=== PATIENT | male | born 1945 | race Caucasian/White ===

== ENCOUNTER 2016-11-09 15:56 | Observation (INO) | payer MEDICARE ==
[~2016-11-09] VITALS: Ht 188 cm; Wt 109.1 kg
[2016-11-09] VITALS (7 sets, daily range): BP systolic 150–178; BP diastolic 83–98; PULSE 55–66; RESP 16–20; TEMP 97.6–97.8; O2SAT 94–96
[~2016-11-09 15:56] MED LIST: 1-ME1LIQ PO; ATEN1TAB74 PO; CETI10 PO; CITA10TA4 PO; GNP1000T4 PO; MULTI-MINERAL PO; NIAC400C2 PO; OMEP20CA5 PO; RED600TA PO; [UNRECOGNIZED DRUG - CODE] PO
[2016-11-09] MEDS ORDERED: SODIUM CHLORIDE 0.9% FLUSH 5 ML FLUSH IVF PRN (16:15)
--- NOTE | 2016-11-09 16:36 | RADRPT ---
EXAM DATE/TIME: 11/09/2016 16:16 [facility] COMPARISON: No previous studies available for comparison. INDICATIONS : Chest pain. MEDICAL HISTORY : None. SURGICAL HISTORY : None. ENCOUNTER: Initial ACUITY: 1 day PAIN SCORE: 4/10 LOCATION: Bilateral chest FINDINGS: There is ill-defined area of airspace density overlying the left hemidiaphragm. This may represent a left lower lobe pneumonia. The cardiomediastinal contours are unremarkable. Osseous structures are i ntact. CONCLUSION: Concern for possible left lower lobe pneumonia. Recommend upright PA lateral views when clinically ab le. Qi Hodge MD on November 09, 2016 at 16:34 Board Certified Radiologist. This report was verified electronically.
--- NOTE | 2016-11-09 16:37 | PD ---
HPI Chief Complaint: Cardiac Complaint Time Seen by Provider: 16:32 Travel History International Travel<30 days: No Contact w/Intl Traveler<30days: No Traveled to known affect area: No History of Present Illness HPI 71-year-old male that presents to the ED for evaluation of possible cardiac complaint. Per patient since Saturday his been having dizziness and lightheadedness spells that did not seem to be going away. Per patient he went to his doctor Dr. Vidal to do workup on him including MRIs as well as ultrasounds of the carotids and the head. Per patient although this testing came within normal limits. He went to see Dr. Alfaro today and he recommended a mold runner workup with evaluation by cardiology for this episodes. Patient states that he has an appointment for November for evaluation of this but today this afternoon before coming he fell another episode with severe pressure in his chest as well as shortness of breath. Per patient he doesn't feel like the room spinning but he feels like he is going to pass out. Denies any fevers chills or sweats. He does state that he feels more weak for the past couple of days. He denies any history of heart disease on himself. He does have a history of high cholesterol, hypertension and takes medications for those. Patient denies any recent history of smoking but does state that he used to smoke but quit about 40 years ago. He states that no cardiac workup has been done by his PCP on the lab work has been done. He denies ever having anything like this before. He denies any changes in medication. Per patient the pain in the chest is more like a pressure and an ache that is 4 out of 10. What got her more concern is that she continues to have the spells and this seems to be progressively getting worse. PFSH Past Medical History Cancer: Yes (skin cancers) Cardiovascular Problems: Yes (HTN) Diabetes: No Endocrine: No Gastrointestinal Disorders: Yes (GERD) Glaucoma: No Genitourinary: No Hepatitis: No Hiatal Hernia: Yes Hypertension: Yes Immune Disorder: No Musculoskeletal: Yes (LOWER BACK PROBLEMS) Neurologic: Yes (HX OF HEADACHES, NUMBNESS/TINGLING BILATERAL FEET, ARMS AND HANDS) Psychiatric: No Reproductive: No Respiratory: No Thyroid Disease: No Tetanus Vaccination: > 5 Years Influenza Vaccination: Yes Past Surgical History Eye Surgery: Yes (3 CATARACT SURGERIES, HX OF LASIK SURGERY) Joint Replacement: No Pacemaker: No Other Surgery: Yes Social History Alcohol Use: Yes (couple of drinks daily) Tobacco Use: Yes (quit in 1969) Substance Use: No Allergies-Medications (Allergen,Severity, Reaction): Coded Allergies: Codeine (Unverified Allergy, Severe, HALLUCINATIONS, 11/09/16) Minocycline (Unverified Allergy, Severe, HIVES, 11/09/16) Sulfites & Bisulfites (Unverified Allergy, Severe, h/a, 11/09/16) Tetracycline (Unverified Allergy, Intermediate, HIVES, 11/09/16) Reported Meds & Prescriptions Reported Meds & Active Scripts Active Reported Amlodipine (Amlodipine Besylate) 10 Mg Tab 10 Mg PO HS Tenormin (Atenolol) 50 Mg Tab 50 Mg PO HS Zyrtec Allergy (Cetirizine HCl) 10 Mg Tab 10 Mg PO HS Citalopram (Citalopram Hydrobromide) 10 Mg Tab 10 Mg PO HS Glucosamine 1,500 Mg Tab 1,500 Mg PO DAILY Niacin Flush Free (Inositol Niacinate) 500 Mg Cap 500 Mg PO BID Omeprazole 20 Mg Tab 20 Mg PO BID Red Yeast Rice (Red Yeast Rice Extract) 600 Mg Tab 600 Mg PO BID B-12 (Cyanocobalamin) 2,000 Mcg Tab 2,000 Mcg PO DAILY B Complex (B-Complex W/ Folic Acid) 1 Tab 1 Tab PO DAILY Multi Vitamin and Mineral (Multiple Vitamins W/ Minerals) 1 Tab Tab 2 Tab PO DAILY Review of Systems Except as stated in HPI: all other systems reviewed are Neg Physical Exam Narrative GENERAL: SKIN: Warm and dry. HEAD: Atraumatic. Normocephalic. EYES: Pupils equal and round 4 mm right reactive to light and accomodation. No scleral icterus. No injection or drainage. ENT: No nasal bleeding or discharge. Mucous membranes pink and moist. Tongue is midline. No uvula deviation. NECK: Trachea midline. No JVD. CARDIOVASCULAR: Regular rate and rhythm. No murmurs, S3, S4. RESPIRATORY: No accessory muscle use. Clear to auscultation. Breath sounds equal bilaterally. GASTROINTESTINAL: Abdomen soft, non-tender, nondistended. Hepatic and splenic margins not palpable. MUSCULOSKELETAL: Extremities without clubbing, cyanosis, or edema. No obvious deformities. Full range of motion of the upper and lower x-rays bilaterally. 2 + pulses bilaterally. NEUROLOGICAL: Awake and alert. No obvious cranial nerve deficits. Motor grossly within normal limits. Five out of 5 muscle strength in the arms and legs. Normal speech. PSYCHIATRIC: Appropriate mood and affect; insight and judgment normal. Data Data Last Documented VS Vital Signs Date Time Temp Pulse Resp B/P Pulse Ox O2 Delivery O2 Flow Rate FiO2 11/09/16 16:20 62 18 96 Room Air 11/09/16 16:10 172/92 11/09/16 16:00 97.8 Orders Electrocardiogram (11/09/16 16:07) Ckmb (Isoenzyme) Profile (11/09/16 16:07) Complete Blood Count With Diff (11/09/16 16:07) Magnesium (Mg) (11/09/16 16:07) Prothrombin Time / Inr (Pt) (11/09/16 16:07) Act Partial Throm Time (Ptt) (11/09/16 16:07) Troponin I (11/09/16 16:07) Chest, Single Ap (11/09/16 16:07) Ecg Monitoring (11/09/16 16:07) Bilateral Bp Monitoring (11/09/16 16:07) Iv Access Insert/Monitor (11/09/16 16:07) Oximetry (11/09/16 16:07) Oxygen Administration (11/09/16 16:07) Sodium Chloride 0.9% Flush (Ns Flush) (11/09/16 16:15) Orthostatic Vital Signs (11/09/16 16:18) Chest, Pa & Lat (11/09/16 ) Comprehensive Metabolic Panel (11/09/16 16:20) Lipase (11/09/16 16:20) Scd Bilateral/Knee High BERNIE.QSHIFT (11/09/16 18:04) Vital Signs (Adult) BERNIE.Q4H (11/09/16 18:04) ^ Tempering Machine Operator / Telemetry (11/09/16 18:04) Place In Observation (11/09/16 ) Activity Oob With Assistance (11/09/16 18:04) Admit Order (Ed Use Only) (11/09/16 18:05) Labs Laboratory Tests Test 11/09/16 16:20 White Blood Count 4.8 TH/MM3 Red Blood Count 5.06 MIL/MM3 Hemoglobin 14.6 GM/DL Hematocrit 41.8 % Mean Corpuscular Volume 82.7 FL Mean Corpuscular Hemoglobin 28.8 PG Mean Corpuscular Hemoglobin 34.8 % Concent Red Cell Distribution Width 13.5 % Platelet Count 188 TH/MM3 Mean Platelet Volume 8.0 FL Neutrophils (%) (Auto) 57.4 % Lymphocytes (%) (Auto) 26.4 % Monocytes (%) (Auto) 13.1 % Eosinophils (%) (Auto) 2.4 % Basophils (%) (Auto) 0.7 % Neutrophils # (Auto) 2.8 TH/MM3 Lymphocytes # (Auto) 1.3 TH/MM3 Monocytes # (Auto) 0.6 TH/MM3 Eosinophils # (Auto) 0.1 TH/MM3 Basophils # (Auto) 0.0 TH/MM3 CBC Comment DIFF FINAL Differential Comment Prothrombin Time 10.5 SEC Prothromb Time International 1.0 RATIO Ratio Activated Partial 26.6 SEC Thromboplast Time Sodium Level 139 MEQ/L Potassium Level 3.4 MEQ/L Chloride Level 102 MEQ/L Carbon Dioxide Level 27.6 MEQ/L Anion Gap 9 MEQ/L Blood Urea Nitrogen 25 MG/DL Creatinine 1.36 MG/DL Estimat Glomerular Filtration 52 ML/MIN Rate Random Glucose 93 MG/DL Calcium Level 9.1 MG/DL Magnesium Level 2.3 MG/DL Total Bilirubin 0.6 MG/DL Aspartate Amino Transf 21 U/L (AST/SGOT) Alanine Aminotransferase 37 U/L (ALT/SGPT) Alkaline Phosphatase 80 U/L Total Creatine Kinase 100 U/L Troponin I LESS THAN 0.02 NG/ML Total Protein 7.2 GM/DL Albumin 4.0 GM/DL Lipase 194 U/L [facility] Medical Decision Making Medical Screen Exam Complete: Yes Emergency Medical Condition: Yes Medical Record Reviewed: Yes Interpretation(s) CBC & BMP Diagram 11/09/16 16:20 troponin negative CKMB negative Last Impressions Chest X-Ray 11/09/16 1607 Signed Impressions: Service Date/Time: Wednesday, November 09, 2016 16:16 - CONCLUSION: Concern for possible left lower lobe pneumonia. Recommend upright PA lateral views when clinically able. Qi Hodge MD Chest X-Ray 11/09/16 0000 Signed Impressions: Service Date/Time: Wednesday, November 09, 2016 17:38 - CONCLUSION: No acute disease. Clint Beatty MD EKG shows sinus rhythm with no sign of acute ischemia or arrhythmia. Troponin and CK-MB negative. Differential Diagnosis Syncope versus presyncope versus dizziness versus chest pain versus ACS versus hypotension versus electrolyte abnormality versus abdominal pain Narrative Course 71-year-old male that presents to the for evaluation of possible cardiac complaint. Patient was properly examined and was found to have signs and symptoms consistent with appears to be possible cardiac complaint. I cannot really rule out hard it disease. Patient has had workup for the presyncope with MRIs and ultrasound car this that I was able to look up on the PACS system and were all negative. I do not see any need for more imaging at this time as patient has had no head injury or any new symptoms other than the continuation of the same symptoms. At this time I do recommend lab work and workup for cardiac. He is agreeable with this plan. He was given aspirin. Labs and imaging showed slight dehydration but otherwise unremarkable. Patient still complains of the chest pressure. My recommendation at this time is for admission for further workup of the presyncopal episodes. Also for chest pain rule out. Case was discussed in my attending Dr. Garza who was spoke with Dr. Mi who agrees to admission. Procedures EKG Prior to Arrival: No Diagnosis Primary Impression: Pre-syncope Additional Impressions: Chest pain in adult Kidney disease Admitting Information Admitting Physician Requests: Yohannes Isaac Nov 09, 2016 16:37
[2016-11-09 16:49] LABS: AUTOMATED NEUTROPHIL # 2.8 TH/MM3 (1.8-7.7); BASOPHIL % 0.7 % (0.0-2.0); EOSINOPHIL # 0.1 TH/MM3 (0-0.4); EOSINOPHIL % 2.4 % (0.0-4.0); HEMATOCRIT 41.8 % (39.0-51.0); HEMO FLAGS DIFF FINAL; LYMPH % 26.4 % (9.0-44.0); LYMPHOCYTE # 1.3 TH/MM3 (1.0-4.8); MEAN CELL VOLUME 82.7 FL (80.0-100.0); MEAN CORPUSCULAR HEMOGLOBIN 28.8 PG (27.0-34.0); MEAN CORPUSCULAR HGB CONC 34.8 % (32.0-36.0); MONO % 13.1 % (0.0-8.0); NEUT % 57.4 % (16.0-70.0); PLATELET COUNT 188 TH/MM3 (150-450); RED BLOOD COUNT 5.06 MIL/MM3 (4.50-5.90); RED CELL DISTRIBUTION WIDTH 13.5 % (11.6-17.2); WHITE BLOOD COUNT 4.8 TH/MM3 (4.0-11.0)
[2016-11-09 17:03] LABS: APTT (PATIENT) 26.6 SEC (24.3-30.1); PROTHROMBIN TIME - PATIENT 10.5 SEC (9.8-11.6)
[2016-11-09] MEDS ORDERED: B COTAB3 PO (17:06)
[2016-11-09] MEDS ORDERED: RED600TA PO (17:06)
[2016-11-09] MEDS ORDERED: MULT-142 PO (17:06)
[2016-11-09] MEDS ORDERED: B-122000 PO (17:06)
[2016-11-09] MEDS ORDERED: OMEP20TA PO (17:07)
[2016-11-09] MEDS ORDERED: ZYRT10TA PO (17:11)
[2016-11-09] MEDS ORDERED: NIAC500C4 PO (17:11)
[2016-11-09] MEDS ORDERED: ATEN1TAB74 PO (17:11)
[2016-11-09] MEDS ORDERED: GLUC15009 PO (17:11)
[2016-11-09] MEDS ORDERED: AMLO10TA2 PO (17:11)
[2016-11-09] MEDS ORDERED: CITA10TA4 PO (17:11)
[2016-11-09 17:42] LABS: ALT (GPT) 37 U/L (12-78); ANION GAP 9 MEQ/L (5-15); AST (GOT) 21 U/L (15-37); BICARBONATE 27.6 MEQ/L (21.0-32.0); BLOOD UREA NITROGEN 25 MG/DL (7-18); CHLORIDE 102 MEQ/L (98-107); GLOMERULAR FILTRATION RATE 52 ML/MIN (>89); MAGNESIUM 2.3 MG/DL (1.5-2.5); POTASSIUM 3.4 MEQ/L (3.5-5.1); SODIUM (NA) 139 MEQ/L (136-145)
--- NOTE | 2016-11-09 17:43 | RADRPT ---
EXAM DATE/TIME: 11/09/2016 17:38 [facility] COMPARISON: No previous studies available for comparison. INDICATIONS : Chest Pain, Fatigue. MEDICAL HISTORY : None. SURGICAL HISTORY : None. ENCOUNTER: Initial ACUITY: 1 day PAIN SCORE: 4/10 LOCATION: Bilateral chest FINDINGS: PA and lateral views of the chest demonstrate the lungs to be symmetrically aerated without evidence of mass, infiltrate or effusion. The cardiomediastinal contours are unremarkable. Osseous structure s are intact. CONCLUSION: No acute disease. Clint Beatty MD on November 09, 2016 at 17:41 Board Certified Radiologist. This report was verified electronically.
[2016-11-09 17:47] LABS: ALKALINE PHOSPHATASE 80 U/L (45-117); TOTAL BILIRUBIN ADULT 0.6 MG/DL (0.2-1.0)
[2016-11-09 17:56] LABS: CREATINE KINASE 100 U/L (39-308)
--- NOTE | 2016-11-09 18:07 | HHI.HP ---
HPI Service [facility] Hospitalists Primary Care Physician Cesario Vidal MD Admission Diagnosis pre-syncope, chest pain r/o ACS, kidney injury Chief Complaint: chest pressure. Travel History International Travel<30 Days: No Contact w/Intl Traveler <30 Da: No Traveled to Known Affected Are: No History of Present Illness Pt is 71 yo man with htn, hyperlipidemia who presented with a constellation of sx's over the past week. had some dizziness and nearly passed out. was nauseated but no diaphoresis. with exertion had some epigastric pressure radiating to right arm. not associated with food but seemed to be worse if he pressed over the epigastrium. no hx cad,chf,arrhythmia. Review of Systems Other epigastric pressure to right arm nausea dizziness weakness Past Family Social History Past Medical History htn depression hyperlipidemia gerd cataract surgery Reported Medications Amlodipine (Amlodipine Besylate) 10 Mg Tab 10 Mg PO HS Tenormin (Atenolol) 50 Mg Tab 50 Mg PO HS Zyrtec Allergy (Cetirizine HCl) 10 Mg Tab 10 Mg PO HS Citalopram (Citalopram Hydrobromide) 10 Mg Tab 10 Mg PO HS Glucosamine 1,500 Mg Tab 1,500 Mg PO DAILY Niacin Flush Free (Inositol Niacinate) 500 Mg Cap 500 Mg PO BID Omeprazole 20 Mg Tab 20 Mg PO BID Red Yeast Rice (Red Yeast Rice Extract) 600 Mg Tab 600 Mg PO BID B-12 (Cyanocobalamin) 2,000 Mcg Tab 2,000 Mcg PO DAILY B Complex (B-Complex W/ Folic Acid) 1 Tab 1 Tab PO DAILY Multi Vitamin and Mineral (Multiple Vitamins W/ Minerals) 1 Tab Tab 2 Tab PO DAILY Allergies: Coded Allergies: Codeine (Unverified Allergy, Severe, HALLUCINATIONS, 11/09/16) Minocycline (Unverified Allergy, Severe, HIVES, 11/09/16) Sulfites & Bisulfites (Unverified Allergy, Severe, h/a, 11/09/16) Tetracycline (Unverified Allergy, Intermediate, HIVES, 11/09/16) Family History nc Social History etoh quit tob 1969 Physical Exam Vital Signs heent neg heart reg lung cta abd s/nt ext no edema Vital Signs Date Time Temp Pulse Resp B/P Pulse Ox O2 Delivery O2 Flow Rate FiO2 11/09/16 16:20 62 18 96 Room Air 11/09/16 16:10 63 18 172/92 96 Room Air 11/09/16 16:10 62 18 172/92 96 11/09/16 16:00 97.8 66 20 178/92 94 Room Air Laboratory Laboratory Tests Test 11/09/16 16:20 White Blood Count 4.8 Red Blood Count 5.06 Hemoglobin 14.6 Hematocrit 41.8 Mean Corpuscular Volume 82.7 Mean Corpuscular Hemoglobin 28.8 Mean Corpuscular Hemoglobin 34.8 Concent Red Cell Distribution Width 13.5 Platelet Count 188 Mean Platelet Volume 8.0 Neutrophils (%) (Auto) 57.4 Lymphocytes (%) (Auto) 26.4 Monocytes (%) (Auto) 13.1 Eosinophils (%) (Auto) 2.4 Basophils (%) (Auto) 0.7 Neutrophils # (Auto) 2.8 Lymphocytes # (Auto) 1.3 Monocytes # (Auto) 0.6 Eosinophils # (Auto) 0.1 Basophils # (Auto) 0.0 CBC Comment DIFF FINAL Differential Comment Prothrombin Time 10.5 Prothromb Time International 1.0 Ratio Activated Partial 26.6 Thromboplast Time Sodium Level 139 Potassium Level 3.4 Chloride Level 102 Carbon Dioxide Level 27.6 Anion Gap 9 Blood Urea Nitrogen 25 Creatinine 1.36 Estimat Glomerular Filtration 52 Rate Random Glucose 93 Calcium Level 9.1 Magnesium Level 2.3 Total Bilirubin 0.6 Aspartate Amino Transf 21 (AST/SGOT) Alanine Aminotransferase 37 (ALT/SGPT) Alkaline Phosphatase 80 Total Creatine Kinase 100 Troponin I LESS THAN 0.02 Total Protein 7.2 Albumin 4.0 Lipase 194 Result Diagram: 11/09/16 1620 11/09/16 1620 Assessment and Plan Problem List: (1) Chest pain in adult Status: Acute Plan: Pt presents with vague sx's over past week with epigastric pressure, intermittent nausea, and weakness in legs. seemed to worsen with activity. had outpt mri brain and carotids negative. discussed with his pcp who was concerned with heart dz. telemetry and ce's cont bb and asa lexiscan and echo. consult cardiology if positive stress. Carlos Tapia MD Nov 09, 2016 18:07
[2016-11-09] MEDS ORDERED: SODIUM CHLORIDE 0.9% FLUSH 5 ML FLUSH IV PRN (18:15)
[2016-11-09] MEDS ORDERED: ASPIRIN EC 325 MG TABEC PO ONE (18:15)
[2016-11-09] MEDS ORDERED: ONDANSETRON HCL 4 MG/2 ML VIAL IV PRN (18:15)
[2016-11-09] MEDS ORDERED: cloNIDine HCL 0.1 MG TAB PO PRN (18:15)
[2016-11-09] MEDS ORDERED: ACETAMINOPHEN 325 MG TAB PO PRN (18:15)
[2016-11-09] MEDS: NS + KCL 20 MEQ INJ 1,000 ML IV SCH (18:29)
[2016-11-09] MEDS ORDERED: PILL SPLITTER OTHER PRN (18:30)
[2016-11-09] MEDS: PANTOPRAZOLE SOD 20 MG DELAYED RELEASE TAB PO SCH (20:47)
[2016-11-09] MEDS: SODIUM CHLORIDE 0.9% FLUSH 5 ML FLUSH IV SCH (20:50)
[2016-11-09] MEDS ORDERED: CETIRIZINE HCL 10 MG TAB PO SCH (21:00)
[2016-11-09] MEDS ORDERED: ATENOLOL 50 MG TAB PO SCH (21:00)
[2016-11-09] MEDS ORDERED: CITALOPRAM HYDROBROMIDE 20 MG TAB PO SCH (21:00)
[2016-11-09 22:55] LABS: CREATINE KINASE 92 U/L (39-308)
[2016-11-10 00:09] VITALS: PULSE 54
[2016-11-10 03:47] VITALS: BP 140/82; PULSE 55; RESP 20; TEMP 97.5; O2SAT 97
[2016-11-10] MEDS: NS + KCL 20 MEQ INJ 1,000 ML IV SCH (04:15)
[2016-11-10 06:33] LABS: ANION GAP 7 MEQ/L (5-15); BICARBONATE 29.4 MEQ/L (21.0-32.0); BLOOD UREA NITROGEN 22 MG/DL (7-18); CHLORIDE 105 MEQ/L (98-107); GLOMERULAR FILTRATION RATE 57 ML/MIN (>89); MAGNESIUM 2.3 MG/DL (1.5-2.5); POTASSIUM 3.5 MEQ/L (3.5-5.1); SODIUM (NA) 141 MEQ/L (136-145)
[2016-11-10 06:36] LABS: CREATINE KINASE 85 U/L (39-308)
[2016-11-10 07:00] VITALS: PULSE 52
[2016-11-10 07:11] VITALS: BP 152/85; PULSE 57; RESP 18; TEMP 98.3; O2SAT 97
[2016-11-10] MEDS: PANTOPRAZOLE SOD 20 MG DELAYED RELEASE TAB PO SCH (08:18)
[2016-11-10] MEDS: SODIUM CHLORIDE 0.9% FLUSH 5 ML FLUSH IV SCH (09:00)
[2016-11-10] MEDS ORDERED: ASPIRIN EC 325 MG TABEC PO SCH (09:00)
[2016-11-10] MEDS ORDERED: REGADENOSON INJ 0.4 MG/5 ML SYR ONE (09:35)
[2016-11-10 11:29] VITALS: BP 146/88; PULSE 55; RESP 18; TEMP 97.3; O2SAT 97
--- NOTE | 2016-11-10 11:50 | RADRPT ---
EXAM DATE/TIME: 11/10/2016 09:04 [facility] COMPARISON: No previous studies available for comparison. INDICATIONS : Chest pressure with shortness of breath and weakness. Angina. DOSE: 30.0 mCi Tc99m Myoview at stress. 10.9 mCi Tc99m Myoview at rest. 0.4 mg Lexiscan STRESS SYMPTOMS: Weird feeling, tingling in hands and feet, headache and abdominal pain. EJECTION FRACTION: 60% MEDICAL HISTORY : Hypercholesterolemia. Hypertension. Gastroesophageal reflux disease. SURGICAL HISTORY : Cataract and bilateral foot surgery. ENCOUNTER: Initial ACUITY: 2 days PAIN SCALE: 3/10 LOCATION: Bilateral chest TECHNIQUE: The patient underwent pharmacologic stress with infusion of prescribed dose. Continuous ECG tracing was monitored during stress. Gated SPECT imaging was performed after stress and conventional SPECT i maging was performed at rest. The examination was performed on a SPECT/CT scanner, both attenuation and non-corrected datasets were reviewed. FINDINGS: DISTRIBUTION: The maximum perfused segment at stress is in the anterolateral wall. PERFUSION STUDY: The pattern of perfusion at stress is within normal limits except in the posterior wall. On a few the images there is better perfusion on rest, bordering on ischemia GATED STUDY: There is intact wall motion and thickening without hypokinetic or dyskinetic segments. CONCLUSION: On a few images there is compression of ischemia involving the RCA distribution in the posterior wall . Wall motion show grossly intact RISK CATEGORY: Low (<1% Annual Mortality Rate) Jacob Byrne MD on November 10, 2016 at 11:47 Board Certified Radiologist. This report was verified electronically.
[2016-11-10 12:09] VITALS: PULSE 57
--- NOTE | 2016-11-10 14:16 | EKG ---
Date Performed: 11/09/2016 Time Performed: 16:19:25 PTAGE: 71 years EKG: Sinus rhythm WITH FIRST DEGREE AV BLOCK MINIMAL VOLTAGE CRITERIA FOR LVH, CONSIDER NORMAL VARIANT INFERIOR MYOCAR DIAL INFARCTION ABNORMAL ECG NO PREVIOUS TRACING DOCTOR: Cesario Duarte Interpretating Date/Time 11/10/2016 14:11:25
--- NOTE | 2016-11-10 14:18 | EKG ---
Date Performed: 11/10/2016 Time Performed: 03:50:20 PTAGE: 71 years EKG: SINUS BRADYCARDIA WITH FIRST DEGREE AV BLOCK INFERIOR MYOCARDIAL INFARCTION Compared to heriberto or tracing no significant change ABNORMAL ECG PREVIOUS TRACING : 11/09/2016 22.11 DOCTOR: Cesario Duarte Interpretating Date/Time 11/10/2016 14:13:12
--- NOTE | 2016-11-10 14:19 | EKG ---
Date Performed: 11/09/2016 Time Performed: 22:11:09 PTAGE: 71 years EKG: SINUS BRADYCARDIA WITH FIRST DEGREE AV BLOCK INFERIOR MYOCARDIAL INFARCTION Compared to heriberto or tracing no significant change ABNORMAL ECG PREVIOUS TRACING : 11/09/2016 16.19 DOCTOR: Cesario Duarte Interpretating Date/Time 11/10/2016 14:13:21
--- NOTE | 2016-11-10 14:37 | HHI.PR ---
Subjective Remarks pressure reproduced by stress test. Objective Vitals heart reg lung cta abd s/nt ext no edema Vital Signs Date Time Temp Pulse Resp B/P Pulse Ox O2 Delivery O2 Flow Rate FiO2 11/10/16 12:09 57 11/10/16 11:29 97.3 55 18 146/88 97 11/10/16 07:11 98.3 57 18 152/85 97 11/10/16 07:00 52 11/10/16 03:47 97.5 55 20 140/82 97 11/10/16 00:09 54 11/09/16 23:42 97.8 55 20 150/83 96 11/09/16 20:30 97.6 58 20 178/98 96 11/09/16 20:20 60 11/09/16 19:10 62 16 154/85 96 Room Air 11/09/16 18:10 60 16 166/87 96 Room Air 11/09/16 16:20 62 18 96 Room Air 11/09/16 16:10 63 18 172/92 96 Room Air 11/09/16 16:10 62 18 172/92 96 11/09/16 16:00 97.8 66 20 178/92 94 Room Air 11/09/16 11/09/16 11/10/16 15:00 23:00 07:00 Intake Total 540 ml 1100 ml Output Total 500 ml 1500 ml Balance 40 ml -400 ml Intake Oral 240 ml IV Total 300 ml 1100 ml Output Urine Total 500 ml 1500 ml Result Diagram: 11/09/16 1620 11/10/16 0553 A/P Problem List: (1) Chest pain in adult Status: Acute Plan: Pt presents with vague sx's over past week with epigastric pressure, intermittent nausea, and general weakness. had outpt mri brain and carotids negative. discussed with his pcp who was concerned with heart dz. Pt had lexiscan today and borderline ischemia of rca distribution was questioned. discussed with cardiology who will see him and decide on disposition. Carlos Tapia MD Nov 10, 2016 14:37
[2016-11-10] MEDS ORDERED: ISOS30TA3 PO (15:39)
[2016-11-10] MEDS ORDERED: Aspirin Ec PO (15:40)
--- NOTE | 2016-11-10 15:40 | HHI.DCPOC ---
Discharge Care Plan Diagnosis: (1) Chest pain in adult (2) Abnormal stress test Goals to Promote Your Health * To prevent worsening of your condition and complications * To maintain your health at the optimal level Directions to Meet Your Goals Take your medications as prescribed Follow your dietary instruction Follow activity as directed Keep your appointments as scheduled Take your immunizations and boosters as scheduled If your symptoms worsen call your PCP, if no PCP go to Urgent Care Center or Emergency Room Smoking is Dangerous to Your Health. Avoid second hand smoke Call the 24-hour hour crisis hotline for domestic abuse at Carlos Tapia MD Nov 10, 2016 15:40
--- NOTE | 2016-11-10 16:14 | MB ---
cc: CRISTÓBAL HOLT MD DATE OF CONSULTATION: 11/10/2016. REASON FOR CONSULTATION: Atypical chest pain / mildly abnormal stress test. HISTORY OF PRESENT ILLNESS: The patient is a very pleasant 71-year-old gentleman with a history of gastroesophageal reflux disease, depression, and hyperlipidemia who presented with fairly vague symptoms which he describes as feeling acutely weak with heaviness in his legs and arms as well as dizziness, disorientation and some nausea. This seemed to happen in fairly defined episodes. The patient was describing these episodes at length and did not describe any chest discomfort but after prompting from his , he did admit to some central / epigastric chest discomfort but this appears to be a fairly minor component of his overall complex symptomatology. He ruled out for OH and had a nuclear stress test which was mildly abnormal and thus I was consulted. Currently he is asymptomatic and denying any residual symptoms. PAST MEDICAL HISTORY: As above. CURRENT MEDICATIONS: 1. Aspirin 225 milligrams daily. 2. Amlodipine 10 milligrams daily. 3. Atenolol 60 milligrams at bedtime. 4. Celexa. 5. Protonix 20 milligrams twice a day. ALLERGIES: 1. CODEINE. 2. MINOCYCLINE. 3. SULFITES. 4. BISULFITES. 5. TETRACYCLINE. PHYSICAL EXAMINATION: VITAL SIGNS: Afebrile, pulse 57, respiratory rate 18, blood pressure 146/88, satting 97% on room air. GENERAL: A pleasant well-appearing gentleman in no distress. NECK: No jugular venous distention. LUNGS: Clear to auscultation bilaterally. CARDIOVASCULAR: Regular rate and rhythm. No murmurs appreciated. ABDOMEN: Benign. EXTREMITIES: No edema. LABORATORY DATA: White count 4.8, hematocrit 41.8, platelets 188,00. Sodium 141, potassium 3.5, chloride 105, bicarb 29.4, BUN 22, creatinine 1.26, glucose 103. Cardiac enzymes are negative x3. IMAGING STUDIES: Chest x-ray showed possible left lower lobe pneumonia. Nuclear stress test was read as borderline posterior ischemia but overall low-risk. IMPRESSION: 1. Abnormal stress test: The patient's stress test was mildly abnormal, though read as low risk. His symptoms are quite vague and though there was some chest discomfort. It seemed to be a fairly minor component of his overall symptomatology. Nonetheless, I did offer a cardiac catheterization. Once the lab aid reopens on Saturday or sooner should his clinical condition become more acute. I do think however that there is a cardiac etiology to his symptoms of arrhythmia more likely. He can be monitored on telemetry until his time of discharge. He could also have an outpatient monitor for followup. They are currently considering their options about whether to go home and continue workup as an outpatient versus staying in the hospital for an inpatient cardiac catheterization. Further recommendations will depend on their decision. Thank you again for the opportunity to participate in this patient's care. MD SCAR Hairston/NAVEED /3:23 PM /4:02 PM
--- NOTE | 2016-11-10 17:36 | EC ---
Study Study Date:11/10/2016 STUDY CONCLUSIONS SUMMARY - Procedure narrative: Transthoracic echocardiography. Image quality was suboptimal. The study was technically limited due to body habitus. Scanning was performed from the parasternal, apical, and subcostal acoustic windows. - Left ventricle: The cavity size was normal. Wall thickness was normal. Systolic function was probably normal. The estimated ejection fraction was in the range of 60% to 65%. Doppler parameters are consistent with abnormal left ventricular relaxation (grade 1 diastolic dysfunction). - Aortic valve: Valve area: 2.41cm^2 (Vmax). If LV function is below 40, please consider prescribing an ACEI or ARB or document rationale for non-use. PROCEDURE DATA STUDY STATUS: Elective. Procedure: Transthoracic echocardiography. Image quality was suboptimal. The study was technically limited due to body habitus. Scanning was performed from the parasternal, apical, and subcostal acoustic windows. Study completion: The patient tolerated the procedure well. Transthoracic echocardiography. M-mode, complete 2D, complete spectral Doppler, and color Doppler. Height: Height: 74in. Weight: Weight: 239.5lb. Body mass index: BMI: 30.8kg/m^2. Body surface area: BSA: 2.35m^2. Patient status: Inpatient. CARDIAC ANATOMY LEFT VENTRICLE: The cavity size was normal. Wall thickness was normal. Systolic function was probably normal. The estimated ejection fraction was in the range of 60% to 65%. Images were inadequate for LV wall motion assessment. Doppler parameters are consistent with abnormal left ventricular relaxation (grade 1 diastolic dysfunction). AORTIC VALVE: Trileaflet; normal thickness, mildly calcified leaflets. Doppler: Transvalvular velocity was within the normal range. There was no stenosis. No regurgitation. Valve area: 2.41cm^2 (Vmax). Indexed valve area: 1.03cm^2/m^2 (Vmax). AORTA: The aorta was poorly visualized. Aortic root: The aortic root was normal in size. MITRAL VALVE: Poorly visualized. Structurally normal valve. Doppler: Transvalvular velocity was within the normal range. There was no evidence for stenosis. No regurgitation. LEFT ATRIUM: Poorly visualized. The atrium was normal in size. RIGHT VENTRICLE: Poorly visualized. The cavity size was normal. Wall thickness was normal. PULMONIC VALVE: Poorly visualized. Doppler: Transvalvular velocity was within the normal range. There was no evidence for stenosis. No regurgitation. TRICUSPID VALVE: Poorly visualized. Structurally normal valve. Doppler: Transvalvular velocity was within the normal range. Trace regurgitation. PULMONARY ARTERY: The main pulmonary artery was normal-sized. Systolic pressure was within the normal range. RIGHT ATRIUM: Poorly visualized. The atrium was normal in size. PERICARDIUM: There was no pericardial effusion. SYSTEMIC VEINS: Inferior vena cava: The vessel was normal in size. Patient weight: 239.5lb _Ejection fraction:_ 65-75% _Fractional shortening:_ 32% up to 5Kg 5-11.5Kg 11.6-22.9Kg 23-45Kg 45-57Kg Aortic Root 7-13 <17 13-22 17-27 17-27 LA diam 6-13 <23 24-38 33-47 37-40 RVID 10-17 7-15 7-15 7-18 8-17 LVIDd 12-22 <32 24-38 33-47 37-40 LVPW 2-4 3-6 5-7 6-8 7-8 IVS 2-4 3-6 5-7 6-8 7-8 BASIC MEASUREMENTS ADULT NORMAL Left ventricle LV internal dimension, ED, chordal 49.8 mm 43-52 level, PLAX LV internal dimension, ES, chordal 35.5 mm 23-38 level, PLAX Fractional shortening, chordal level, *29 % >29 PLAX LV posterior wall thickness, ED 8.51 mm IVS/LVPW ratio, ED 1.14 <1.3 Ventricular septum Septal thickness, ED 9.74 mm Aortic valve Leaflet separation 18 mm 15-26 Right ventricle RV internal dimension, ED, PLAX 23.2 mm 19-38 BASIC MEASUREMENTS ADULT NORMAL Aortic valve Leaflet separation 18 mm 15-26 Aorta Root diameter, ED 27 mm 20-37 Left atrium Anterior-posterior dimension, ES 30 mm 19-40 Anterior-posterior dimension index, ES 1.28 cm/m^2 <2.2 LA/aortic root ratio 1.11 DOPPLER MEASUREMENTS ADULT NORMAL Main pulmonary artery Pressure, S 15 mm Hg =30 Aortic valve Peak velocity, S 133 cm/s Valve area, Vmax 2.41 cm^2 Valve area index, Vmax 1.03 cm^2/m^2 Mitral valve Peak E-wave velocity 65.2 cm/s Peak A-wave velocity 108 cm/s Deceleration time *299 ms 150-230 Peak E/A ratio 0.6 Tricuspid valve Regurgitant peak velocity 143 cm/s Peak RV-RA gradient, S 8 mm Hg Maximal regurgitant velocity 143 cm/s Systemic veins Estimated CVP 10 mm Hg Right ventricle RV pressure, S 18 mm Hg <30 Pulmonic valve Peak velocity, S 88.2 cm/s LEGEND: Mean values are shown as u=mean value. Asterisk (*) douglas values outside specified normal range. Prepared and signed by Scottie Wolf [id number]
[2016-11-11] MEDS ORDERED: ISOSORBIDE MONONITRATE 30 MG TAB PO SCH (07:00)
== END 2016-11-10 16:35 | disposition home or self-care (01) ==
LOC: NEPC 15:56 → NEDA 18:07 → NEPGCP 20:07
PROVIDERS: ADMIT Hospitalist; ATTEND Hospitalist
DX: R07.9 Chest pain, unspecified (principal); R94.39 Abnormal result of other cardiovascular function study; R55 Syncope and collapse; R06.02 Shortness of breath; I10 Essential (primary) hypertension; E78.00 Pure hypercholesterolemia, unspecified; K21.9 Gastro-esophageal reflux disease without esophagitis; E78.5 Hyperlipidemia, unspecified; R53.1 Weakness; Z85.828 Personal history of other malignant neoplasm of skin
CPT/HCPCS: 71010; 71020; 78452; 80048; 80053; 82550; 83690; 83735; 84484; 85025; 85610; 85730; 93005; 93017; 93306; 99285; A9502; G0378; J2785; J3480